=== PATIENT | male | born 1990 | race Asian ===

== ENCOUNTER 2025-01-06 18:25 | Emergency (ER) | payer OTHER, SELFPAY ==
[2025-01-06 19:06] VITALS: BP 161/99; PULSE 107; RESP 18; TEMP 36.6; O2SAT 99; BMI 36.8
--- NOTE | 2025-01-06 19:09 | XR_ITS ---
EXAMINATION: Left wrist 2 views TECHNIQUE: 1. AP lateral left wrist 2 views Date and time: January 06, 2025, 192 hours INDICATIONS: Injury to the wrist today, wrist pain. FINDINGS: No acute fracture. No dislocation No foreign body IMPRESSION: No acute fracture
[2025-01-06] MEDS: KETOROLAC INJ 60 MG/2 ML VIAL IM (21:16)
[2025-01-06] MEDS: DEXAMETHASONE SOD PHOS INJ 10 MG/ML VIAL IM (21:16)
--- NOTE | 2025-01-06 21:17 | EDNOTE_ITS ---
Upper Extremity Injury RME/HPI General Chief Complaint: Hand/Wrist Problems Stated Complaint: Wrist Injury/Workmans Comp Time Seen by Provider: 01/06/25 18:46 Arrival date/time: 01/06/25 18:25 This is a case of 34-year-old male with no medical history came in in the emergency room due to left wrist pain and left shoulder pain 1 hour prior to arrival in the emergency room history of present illness started when patient was lifting heavy boxes at work and started to have pain on the left wrist and left shoulder persistence of the symptoms thus patient decided to sought consult here in the emergency room Limitations: no limitations Related Data Previous Rx's ?Medication ?Instructions ?Recorded albuterol sulfate 2.5 mg/0.5 mL 2.5 mg (0.5 mL) inhala tion Q6H PRN 07/02/20 solution for nebulization shortness of breath or wheez ing #60 ea prednisone 50 mg tablet 50 mg PO QDAY #7 tabs tramadol 50 mg tablet 50 mg PO Q6H PRN pain #16 ta bs 01/06/25 Allergies Allergy/AdvReac Type Severity Reaction Status Date / Time shellfish derived Allergy Severe Swelling Verified 07/02/20 17:31 of Lip/Tongue/Throat Review of Systems Review of Systems Systems Reviewed: All systems reviewed, normal except as documented Constitutional Constitutional: Reports system reviewed and no additional complaints, except as documented and Reports as per HPI Cardiovascular Cardiovascular: Reports system reviewed and no additional complaints, except as documented and Reports as per HPI Respiratory Respiratory: Reports system reviewed and no additional complaints, except as documented and Reports as per HPI Gastrointestinal Gastrointestinal: Reports system reviewed and no additional complaints, except as documented and Reports as per HPI Genitourinary Genitourinary: Reports system reviewed and no additional complaints, except as documented and Reports as per HPI Musculoskeletal Musculoskeletal: Reports system reviewed and no additional complaints, except as documented and Reports as per HPI Neurologic Neurologic: Reports system reviewed and no additional complaints, except as documented and Reports as per HPI Past Medical History Past Medical History CARDIAC: Negative Congestive Heart Failure RESPIRATORY: Positive Asthma and Bronchitis; Negative Chronic Obstructive Pulmonary Disease (COPD) GENITOURINARY: Negative Renal Disease ENDOCRINE: Negative Diabetes Mellitus Type 1 or Diabetes Mellitus Type 2 Social History SMOKING STATUS: Never smoker ED Exam General Limitations: Present no limitations General appearance: Present alert, in no apparent distress and other Head Head exam: Present atraumatic, normocephalic and normal inspection Eye Eye exam: Present normal appearance, PERRL and EOMI ENT ENT exam: Present normal exam, normal oropharynx and mucous membranes moist Neck Neck exam: Present normal inspection, full ROM and trachea midline; Absent tenderness, meningismus, lymphadenopathy or thyromegaly Chest Chest inspection: Present normal inspection and symmetric chest wall rise; Absent tenderness, rash or abscess Respiratory Respiratory exam: Present normal lung sounds bilaterally; Absent respiratory distress, wheezes, stridor, accessory muscle use or prolonged expiratory phase Cardiovascular Cardiovascular exam: Present regular rate, normal rhythm and normal heart sounds; Absent bradycardia, tachycardia, irregular rhythm, systolic murmur or diastolic murmur Abdominal Exam Abdominal exam: Present soft and normal bowel sounds Extremities Exam Extremities exam: Present normal inspection and full ROM Expanded Upper Extremity Exam Shoulder exam: Present normal inspection, full ROM and other (ROM intact neurovascular intact); Absent tenderness, swelling, abrasion, laceration, ecchymosis, deformity, crepitus, dislocation, erythema or tenderness over AC joint Forearm/Wrist exam: Present tenderness, swelling and other (Mild to moderate tenderness on the left wrist no crepitation no deformity no redness no cellulitis ROM is limited due to pain pulses were full and equal capillary refill less than 2 seconds sensory); Absent abrasion, laceration, ecchymosis, deformity, crepitus, dislocation, erythema, tenderness over anatomical snuff box or pain with axial thumb loading Back Exam Back exam: Present normal inspection and full ROM Neurological Exam Neurological exam: Present alert, oriented X3, CN II-XII intact, normal gait and reflexes normal; Absent motor sensory deficit Psychiatric Psychiatric exam: Present normal affect and normal mood Skin Skin exam: Present warm, dry, intact and normal color Course Quality Measures none Orders Category Date Time Status XR wrist LT 2V Stat Exams 01/06/25 19:09 Completed Dexamethasone Inj [Decadron Inj] Med 01/06/25 21:03 Discontinued 10 mg IM X1 ONE Ketorolac Inj [Toradol Inj] Med 01/06/25 21:03 Discontinued 60 mg IM X1 ONE Vital Signs Vital signs: Vital Signs Temperature 98 F 01/06/25 19:06 Pulse Rate 107 H 01/06/25 19:06 Respiratory Rate 18 01/06/25 19:06 Blood Pressure 161/99 H 01/06/25 19:06 Pulse Oximetry (%) 99 01/06/25 19:06 Oxygen saturation is 99% in room air initially patient blood pressure was 161/99 after giving Toradol patient blood pressure went down to 135/85 Extremity Injury MDM Narrative [facility] Narrative:: This is a case of 34-year-old male with no medical history came in in the emergency room due to left wrist pain and left shoulder pain 1 hour prior to arrival in the emergency room history of present illness started when patient was lifting heavy boxes at work and started to have pain on the left wrist and left shoulder persistence of the symptoms thus patient decided to sought consult here in the emergency room physical examination patient is awake alert oriented not in distress nontoxic looking well-hydrated well-nourished patient noted left wrist moderate tenderness with mild swelling no crepitation no deformity no cellulitis ROM is limited due to pain pulses were full and equal capillary refill less than 2 seconds sensory is intact shoulder exam were normal no crepitation no deformity no tenderness no swelling ROM intact neurovascular intact thus I did not order any x-ray of the left shoulder x-ray of the left wrist were normal, no fracture no dislocation a volar splint was applied for immobilization and patient was given sling patient tolerated well neurovascular intact patient will follow-up with PCP in 2 days for reevaluation and for any worsening symptoms or any emergent concern he will return in the emergency room immediately or call 911 he was advised to continue to monitor his symptoms if persist need to see an orthopedic surgeon for MRI to rule out ligament or rotator cuff injury Patient was discharged with comfortable condition walking with stable gait. Patient verbalized no further complains explained diagnosis and answered patient question. Patient is comfortable with the proposed management plan including the need to follow up with his/her primary care physician and any specialist if applicable Discussed patient for any urgent condition or worsening sx, He/She needed to go to emergency room immediately or call 911. Patient acknowledge the responsibility to follow up as instructed and to monitor her/his symptoms. For any persistence of the symptoms for more than 3-5 days return precaution advised. Discussed the result of the test and was given printed discharge instruction Patient data External records reviewed:: [facility] previous records Clinical information provided by:: patient Social determinants that could affect healthcare access:: none Patient has the following chronic illnesses:: None How is presenting disease/condition affected by chronic disease/condition?: no chronic disease Evaluation data The following diagnostics were reviewed and interpreted by me:: radiology exam(s) Lab and/or radiology exams considered but not ordered:: Reviewed Interpretation Summary: Reviewed Medications / Prescriptions Medications or Prescriptions considered but not ordered:: Given Medication administrations:: Medication Administration History Discontinued Medications Dexamethasone Sodium Phosphate (Dexamethasone Sod Phos Inj 10 Mg/Ml Vial) 10 mg IM X1 ONE Stop: 01/06/25 21:04 Last Admin: 01/06/25 21:16 Dose: 10 mg Documented By: VANESSA Ketorolac Tromethamine (Ketorolac Inj 60 Mg/2 Ml Vial) 60 mg IM X1 ONE Stop: 01/06/25 21:04 Last Admin: 01/06/25 21:16 Dose: 60 mg Documented By: VANESSA Given Consultations Consultation(s) initiated? (list below): No Diagnosis Upper Extremity Injury Differential Diagnosis: sprain and strain of wrist, fracture of wrist, dislocation of shoulder and fracture of humerus Most likely diagnosis given after review of the tests above:: Wrist sprain shoulder sprain Admission Indicated Admission indicated?: not indicated Explain why admission is indicated or not indicated:: Not indicated Admission Request Was there a request for admission?: No Admission Attestation Admission request attestation: Not indicated Disposition Plan Disposition Plan: Discharge Discharge Attestation Discharge Attestation: The patient and all family members were given an opportunity to ask questions and understood the discharge instructions. Discharge instructions specifically effects, indications for sooner follow up or return to the emergency department, and the expected course of current diagnosis. Patient condition: Stable Discharge Plan Plan Patient Disposition: HOME (Self Care) Patient condition on transfer: Stable Prescriptions/Referrals Prescriptions/Med Rec: New tramadol 50 mg tablet 50 mg PO Q6H MDD max 4 tabs per day PRN (Reason: pain) Qty: 16 0RF No Action prednisone 50 mg tablet 50 mg PO QDAY Qty: 7 0RF albuterol sulfate 2.5 mg/0.5 mL solution for nebulization 2.5 mg inhalation Q6H PRN (Reason: shortness of breath or wheezing) Qty: 60 0RF Rx Instructions: for up to 3 doses Referrals: Abraham Marquez MD [Primary Care Provider, Family Practice] - In 1 week Problem List Clinical Impression: Left wrist sprain, Sprain of left shoulder Patient/Caregiver Discharge Instructions Education Materials: ED Shoulder Sprain, ED Splint Care, Fiberglass, ED Wrist Sprain, ED RICE Additional Instructions: Follow-up with your primary care physician in 2 days for reevaluation and if symptoms persist needs to have see an orthopedic surgeon for possible MRI to rule out rotator cuff injury or ligament injury recurrence persistent worsening symptoms or any emergent concerns such as numbness weakness tingling sensation return to the emergency room immediately or call 911 ice pack every 2 hours for 20 minutes for 24 hours then alternate with warm compress keep the splint and sling in place until cleared by your primary care physician take your medication as directed Print Language: Prydeinig Stand Alone Forms: Zo Award Info., Work/School Release, Patient Portal Info Letter PA/[employer] SCIENCES DEPARTMENT CHAIR Supervising Physician PA/[employer]IAL SCIENCES DEPARTMENT CHAIR Supervising Physician: Dr. Juan Pablo Bush
== END 2025-01-06 21:26 | disposition home or self-care (01) ==
PROVIDERS: Emergency Provider Emergency Medicine; PCP Family Medicine
DX: S43.402A Unspecified sprain of left shoulder joint, initial encounter (principal); S63.502A Unspecified sprain of left wrist, initial encounter; X50.3XXA Overexertion from repetitive movements, initial encounter
CPT/HCPCS: 73100; 96372; 99283; J1100; J1885